=== PATIENT | male | born 1985 | race Caucasian/White ===

== ENCOUNTER 2021-12-24 08:33 | Emergency (ER) | payer BC, MEDICAID ==
[2021-12-24] MEDS ORDERED: Alum Hydrox/Mag Hydrox/Simeth 30 ML, Lidocaine 2% 15 ML PO ONE ×2 (09:15)
[2021-12-24] MEDS ORDERED: HYDROmorphone 0.5 MG/0.5 ML Syringe IVPUSH ONE (10:10)
[2021-12-24] MEDS ORDERED: Ondansetron 4 MG/2 ML SDV IVPUSH ONE (10:10)
[2021-12-24] MEDS ORDERED: Dicyclomine 10 MG Cap PO ONE (10:10)
[2021-12-24] MEDS ORDERED: Famotidine 20 MG Tab PO ONE (10:10)
[2021-12-24] MEDS ORDERED: amLODIPine 10 MG Tab PO ONE (10:11)
== END 2021-12-24 12:30 | disposition home or self-care (01) ==
LOC: JD.ED 08:33
DX: R07.89 Other chest pain (principal); K22.4 Dyskinesia of esophagus; I10 Essential (primary) hypertension; R94.31 Abnormal electrocardiogram [ECG] [EKG]; Z20.822 Contact with and (suspected) exposure to COVID-19
CPT/HCPCS: 36415; 70450; 71045; 80053; 81001; 82553; 83690; 83735; 84484; 85025; 85379; 85610; 86140; 87635; 96374; 96375; 99285; A9270; J1170; J2405; U0002